=== PATIENT | male | born 1990 | race Caucasian/White ===

== ENCOUNTER 2020-04-21 11:37 | Emergency (ER) | payer OTHER, SELFPAY ==
[2020-04-21 11:38] VITALS: BP 186/96; PULSE 86; RESP 18; TEMP 37.1; O2SAT 99; BMI 51.9
--- NOTE | 2020-04-21 11:40 | EKG12_ITS ---
Test Reason : CP Blood Pressure : / mmHG Vent. Rate : 080 BPM Atrial Rate : 080 BPM P-R Int : 188 ms QRS Dur : 100 ms QT Int : 380 ms P-R-T Axes : 027 -06 008 degrees QTc Int : 438 ms Normal sinus rhythm with sinus arrhythmia Normal ECG Confirmed by MANAV PATEL, COLE ([id number]), editor book DIMPLE HART ([id number]) on 04/23/2020 9:08:23 AM Referred By: TEO Confirmed By:COLE EM MD
[2020-04-21 11:44] VITALS: O2SAT 99
[2020-04-21 11:49] LABS: Absolute Lymphocyte Count 1.95 X10^3/uL (0.83-4.51); Absolute Neutrophil Count 6.3 X10^3/uL (2.0-7.7); Basophil# 0.04 X10^3/uL; Basophil% 0.5 % (0-1); Eosinophils% 1.1 % (0-5); Hematocrit 49.2 % (40-54); Hemoglobin 16.8 g/dL (13.0-16.5); Lymphocyte # 1.95 X10^3/ul (4.0); Mean Corp Hgb Conc 34.1 g/dL (32-36); Mean Corpuscular Hgb 31.2 pg (27.0-32.0); Mean Corpuscular Volume 91.3 fL (80-94); Mean Platelet Vol. 11.7 fl (6.2-12.0); Monocyte# 0.44 X10^3/uL; NRBC Flagged by Analyzer 0 % (0-5); Neutrophil # 6.32 X10^3/uL (2.7-7.7); Neutrophil % 71.1 % (47-70); Platelet Count 241 K/mm3 (150-450); RBC Distribution Width CV 11.2 % (11.6-14.6); RBC Distribution Width SD 37.6 fl (35.1-43.9); Red Blood Count 5.39 M/mm3 (4.6-6.2); White Blood Count 8.9 K/mm3 (4.4-11.0)
--- NOTE | 2020-04-21 11:50 | RAD_ITS ---
STUDY: X-RAY CHEST REASON FOR EXAM: Male, 29 years old. Chest pain TECHNIQUE: Single AP portable view of the chest. COMPARISON: None. FINDINGS: EKG leads overlie the chest The lungs are clear and expanded. There is no demonstrated pleural abnormality. Normal size heart. Normal mediastinum and luisa. Normal visualized pulmonary arteries. Normal visualized aortic arch and descending thoracic aorta. Normal visualized thoracic spine. Normal visualized ribs, clavicles, and shoulders. There is no demonstrated abnormality of the visualized soft tissue structures of the upper abdomen. RAD/Chest 1 View (Portable) IMPRESSION: Normal x-ray examination of the chest. Electronically Signed: Gurdeep Troy MD at 12:07 EDT , Service support ,
[2020-04-21] MEDS: 0.9% Normal Saline 1,000 ML 1000 ML IV (11:52)
[2020-04-21] MEDS: Aspirin 81 MG TAB.CHEW 324 MG PO (11:52)
--- NOTE | 2020-04-21 11:55 | ED.DCSUM_ITS ---
History of Present Illness Chief Complaint: Chest Pain Informant: Patient Onset: Today Timing: Intermittent Current Severity: Moderate Maximum Severity: Moderate Narrative: The patient is a 29-year-old male with no significant medical history that presents to the emergency department with intermittent heaviness in his chest. The patient states that started today. He describes it as seconds of nausea and heaviness in his chest. He states that it feels like when you are going on a roller coaster. He denies any vomiting. He denies any shortness of breath. He has had no fever or chills. He states he is never really had symptoms like this before that of lasted this long. The patient has no history of coronary vascular disease. He is on no daily medications. He does not smoke. Prior similar symptoms: No Recent Illness/Hospitalization: No Past Medical History - Allergies and Home Meds Allergies/Adverse Reactions: Allergies No Known Allergies Allergy (Verified 04/21/20 11:43) Primary Care Physician: Care Physician,No Primary [Primary Care Provider] - Prior records reviewed: Yes Past Medical History: None Surgical History: noncontributory Smoking Status: Never smoker Review of Systems General: Denies: Chills, Fever, Sweats Eyes: Denies: Visual changes - bilaterally, Diplopia ENT: Denies: Rhinorrhea, Sore throat Cardiovascular: Reports: Chest pain. Denies: Palpitations Respiratory: Denies: Dyspnea, Cough, Dyspnea on exertion Gastrointestinal: Reports: Nausea. Denies: Abdominal pain, Vomiting, Diarrhea, Melena, Hematochezia Genitourinary: Denies: Dysuria, Hematuria, Frequency Musculoskeletal: Denies: Back pain, Extremity Pain Skin: Denies: Rash, Wounds Neurological: Denies: Headache, Weakness, Numbness Physical Exam Vital Signs/Narrative: Vital Signs Temp Pulse Resp BP Pulse Ox 04/21/20 11:44 99 04/21/20 11:38 98.8 F 86 18 186/96 H 99 Inital Vital Signs reviewed: Yes General: Well nourished, Well developed, No Acute Distress Head: Normocephalic, Atraumatic Eyes: Perrl, EOMI ENT: Moist mucous membranes, No rhinorrhea Neck: Supple, Nontender Cardiovascular: Regular rate, Regular rhythm, No murmurs Respiratory: No distress, CTA bilaterally, Chest nontender Abdomen: Soft, Nontender, Nondistended, Normal bowel sounds Back: Nontender, Normal Inspection Extremities: Nontender, No edema Skin: Normal color, No rash Neurological: Alert, Oriented x3, Cranial nerves II-XII grossly intact, Normal Strength, Normal Sensation Psychological: Normal affect, Normal Mood Diagnostic/Tx/Re-eval Clinical Impression(s) from Imaging Studies Chest X-Ray 04/21/20 11:50 IMPRESSION: Normal x-ray examination of the chest. Electronically Signed: Gurdeep Troy MD at 12:07 EDT , Service support , Abnormal Lab Results 04/21/20 04/21/20 11:42 11:42 WBC 8.9 RBC 5.39 Hgb 16.8 H Hct 49.2 MCV 91.3 MCH 31.2 MCHC 34.1 RDW Std Deviation 37.6 RDW Coeff of [place] 11.2 L Plt Count 241 MPV 11.7 Immature Gran % (Auto) 0.300 Neut % (Auto) 71.1 H Lymph % (Auto) 22.0 Pleasants % (Auto) 5.0 Eos % (Auto) 1.1 Baso % (Auto) 0.5 Absolute Neuts (auto) 6.3 Absolute Lymphs (auto) 1.95 Nucleated RBC % 0 Sodium 140 Potassium 3.8 Chloride 106 Carbon Dioxide 30.0 Anion Gap 4 L BUN 11 Creatinine 1.02 Estim Creat Clear Calc 132.24 Est GFR (MDRD) Af Amer 109 Est GFR (MDRD) Non-Af 90 BUN/Creatinine Ratio 10.8 Glucose 101 Calcium 9.9 Troponin I < 0.015 - Medical Decision Making EKG was obtained on patient arrival. It was sinus with some sinus arrhythmia. There is no acute ischemic change. The patient's pain does not seem cardiac, but cardiac work-up was pursued to rule out dangerous pathologies. Cardiac enzymes were normal. EKG was normal. Chest x-ray shows no enlarged cardiac silhouette, volume overload, pneumothorax. Screening labs are unremarkable. With Zofran, his symptoms at almost totally abated. I do suspect that this is more likely GI. The patient has a heart score of 0. I do feel that he is safe for outpatient follow-up. Impression 1. Atypical chest pain 2. Nausea ED Disposition - Plan for ED Patient: Instructions: ED Chest Pain NonCardiac Prescriptions: Famotidine [Pepcid] 20 mg PO BID #28 tab Prescription Printed Ondansetron [Zofran Odt] 4 mg PO Q8H PRN PRN #10 tab PRN Reason: Nausea Prescription Printed Referrals: Care Physician,No Primary [Primary Care Provider] -
[2020-04-21 12:06] LABS: Anion Gap 4 (5-15); BUN 11 mg/dL (7-18); BUN/Creat Ratio 10.8 RATIO (10-20); Calcium,Total 9.9 mg/dL (8.5-10.1); Chloride 106 mmol/L (98-107); Creatinine, Serum 1.02 mg/dL (0.70-1.30); EST Glomerular Filtration Rate 90 mL/min (>60); Est Glom Filt Rate - Afr Amer 109 mL/min (>60); Estimated Creatinine Clearance 132.24 ml/min; Glucose 101 mg/dL (74-106); Potassium 3.8 mmol/L (3.5-5.1); Sodium Level 140 mmol/L (136-145)
[2020-04-21 12:11] VITALS: BP 149/79; PULSE 63; RESP 13; O2SAT 100
[2020-04-21] MEDS: Ondansetron 4 MG/2 ML Vial IV (12:19)
[2020-04-21 12:41] VITALS: BP 140/76; PULSE 64; RESP 19; O2SAT 100
== END 2020-04-21 12:48 | disposition home or self-care (01) ==
LOC: ED 12:21
PROVIDERS: Emergency Provider Emergency Medicine
DX: R07.89 Other chest pain (principal); R11.0 Nausea
CPT/HCPCS: 71045; 80048; 84484; 85025; 93005; 96361; 96374; 99285; J7030; A4216; J2405

== ENCOUNTER 2021-03-05 14:17 | Outpatient (RCR) | payer OTHER, SELFPAY | END 2021-04-24 23:59 | LOC: IMMUN 14:17 | PROVIDERS: Visit Provider Family Medicine | DX: Z23 Encounter for immunization (principal) | CPT/HCPCS: 0001A; 91300 ==